=== PATIENT | male | born 1980 | race Caucasian/White ===

== ENCOUNTER 2017-04-11 02:44 | Inpatient (IN) | payer SELFPAY, OTHER ==
[2017-04-11] MEDS: LORAZEPAM 2 MG INJ IV ×2 (05:29→06:16)
[2017-04-11 05:32] LABS: ADD MAN DIFF? NO
[2017-04-11 05:46] LABS: BASOPHIL # 0.1 10^3/ul (0.0-0.1); BASOPHILS % 0.5 % (0.0-2.0); EOSINOPHILS % 0.2 % (0.0-7.0); HEMATOCRIT 51.5 % (42.0-52.0); HEMOGLOBIN 17.8 g/dl (14.0-18.0); LYMPHOCYTES # 1.1 10^3/ul (0.8-2.9); LYMPHOCYTES % 7.7 % (15.0-51.0); MEAN CORPUSCULAR HEMOGLOBIN 29.3 pg (29.0-33.0); MEAN CORPUSCULAR HGB CONC 34.6 g/dl (32.0-37.0); MEAN CORPUSCULAR VOLUME 84.8 fl (82.0-101.0); MEAN PLATELET VOLUME 9.7 fl (7.4-10.4); MONOCYTE # 1.3 10^3/ul (0.3-0.9); MONOCYTES % 8.9 % (0.0-11.0); NEUTROPHIL # 11.5 10^3/ul (1.6-7.5); NEUTROPHILS % 81.5 % (39.0-77.0); PLATELET COUNT 570 10^3/UL (140-415); RED BLOOD COUNT 6.07 10^6/ul (4.70-6.10); RED CELL DISTRIBUTION WIDTH 13.2 % (11.5-14.5)
[2017-04-11 05:46] LABS: WHITE BLOOD COUNT 14.1 10^3/ul (4.8-10.8)
[2017-04-11] MEDS: SOD CHLORIDE 0.9% 1,000 ML IV ×2 (06:16→18:47)
[2017-04-11 06:17] LABS: ANION GAP 19 (8-16); BLOOD UREA NITROGEN 22 mg/dl (7-20); CALCIUM 10.4 mg/dl (8.4-10.2); CARBON DIOXIDE 25 mmol/L (21-31); CHLORIDE 99 mmol/L (97-110); CREATININE 0.86 mg/dl (0.61-1.24); GLUCOSE 94 mg/dl (70-220); POTASSIUM 3.3 mmol/L (3.5-5.1); SODIUM 140 mmol/L (135-144)
[2017-04-11 06:28] LABS: TROPONIN-I 0.071 ng/ml (0.00-0.12)
[2017-04-11] MEDS: ASPIRIN 81 MG TAB PO (07:11)
[2017-04-11] MEDS ORDERED: ONDANSETRON 4 MG INJ IV (08:00)
[2017-04-11] MEDS ORDERED: LORAZEPAM 0.5 MG TAB PO (15:30)
[2017-04-11 16:17] LABS: ALANINE AMINOTRANSFERASE 61 IU/L (13-69); ALBUMIN 4.9 g/dl (3.3-4.9); ALKALINE PHOSPHATASE 89 IU/L (42-121); ASPARTATE AMINO TRANSFERASE 42 IU/L (15-46); BILIRUBIN,INDIRECT 0.4 mg/dl (0-1.1); BILIRUBIN,TOTAL 0.4 mg/dl (0.2-1.3); MAGNESIUM 2.2 mg/dl (1.7-2.5); PHOSPHORUS 2.6 mg/dl (2.5-4.9); TOTAL PROTEIN 8.5 g/dl (6.1-8.1)
[2017-04-11 16:46] LABS: THYROID STIMULATING HORMONE 0.761 MIU/L (0.465-4.680)
[2017-04-11 18:56] LABS: CREATINE KINASE 147 IU/L (23-200)
[2017-04-11 19:08] LABS: CK INDEX 2.7; TROPONIN-I 0.024 ng/ml (0.00-0.12)
[2017-04-11 19:09] LABS: CK-MB 3.91 ng/ml (0.0-2.4)
[2017-04-11 19:12] LABS: AMPHETAMINE/METHAMPHETAMINE POSITIVE (NEGATIVE); BARBITURATES Negative (NEGATIVE); BENZODIAZEPINES Negative (NEGATIVE); CANNABINOIDS Positive (NEGATIVE); COCAINE Negative (NEGATIVE); OPIATES Negative (NEGATIVE)
[2017-04-11] MEDS: ACETAMINOPHEN 325 MG TAB PO (19:43)
[2017-04-11] MEDS: FAMOTIDINE 20 MG TAB PO (20:19)
[2017-04-12 01:27] LABS: CREATINE KINASE 134 IU/L (23-200)
[2017-04-12 01:41] LABS: CK INDEX 2.2; TROPONIN-I 0.023 ng/ml (0.00-0.12)
[2017-04-12 01:45] LABS: CK-MB 3.01 ng/ml (0.0-2.4)
[2017-04-12] MEDS: SOD CHLORIDE 0.9% 1,000 ML IV ×2 (02:50→08:59)
[2017-04-12 07:22] LABS: ADD MAN DIFF? NO
[2017-04-12 07:30] LABS: WHITE BLOOD COUNT 5.8 10^3/ul (4.8-10.8)
[2017-04-12 07:30] LABS: BASOPHILS % 0.5 % (0.0-2.0); EOSINOPHILS # 0.2 10^3/ul (0.0-0.5); EOSINOPHILS % 3.8 % (0.0-7.0); HEMATOCRIT 42.6 % (42.0-52.0); HEMOGLOBIN 14.4 g/dl (14.0-18.0); LYMPHOCYTES # 1.4 10^3/ul (0.8-2.9); LYMPHOCYTES % 23.7 % (15.0-51.0); MEAN CORPUSCULAR HEMOGLOBIN 29.4 pg (29.0-33.0); MEAN CORPUSCULAR HGB CONC 33.8 g/dl (32.0-37.0); MEAN CORPUSCULAR VOLUME 87.1 fl (82.0-101.0); MEAN PLATELET VOLUME 9.7 fl (7.4-10.4); MONOCYTE # 0.6 10^3/ul (0.3-0.9); MONOCYTES % 10.2 % (0.0-11.0); NEUTROPHIL # 3.5 10^3/ul (1.6-7.5); NEUTROPHILS % 61.1 % (39.0-77.0); PLATELET COUNT 389 10^3/UL (140-415); RED BLOOD COUNT 4.89 10^6/ul (4.70-6.10); RED CELL DISTRIBUTION WIDTH 13.7 % (11.5-14.5)
[2017-04-12 07:49] LABS: ANION GAP 10 (8-16); BLOOD UREA NITROGEN 17 mg/dl (7-20); CALCIUM 8.4 mg/dl (8.4-10.2); CARBON DIOXIDE 26 mmol/L (21-31); CHLORIDE 111 mmol/L (97-110); CREATININE 0.69 mg/dl (0.61-1.24); GLUCOSE 100 mg/dl (70-220); POTASSIUM 4.1 mmol/L (3.5-5.1); SODIUM 143 mmol/L (135-144)
[2017-04-12] MEDS: FAMOTIDINE 20 MG TAB PO (08:57)
[2017-04-12] MEDS: ASPIRIN (EC) 81 MG TAB PO (08:57)
[2017-04-12] MEDS ORDERED: INFLUENZA VIRUS VACCINE 0.5 ML SYG IM* (21:00)
== END 2017-04-12 14:23 | disposition home or self-care (01) | DRG 310 ==
LOC: E/R 02:44 → MS4 07:36
DX: R00.0 Tachycardia, unspecified (principal); F15.10 Other stimulant abuse, uncomplicated; R07.9 Chest pain, unspecified; R00.2 Palpitations
CPT/HCPCS: 36415; 71045; 80048; 80076; 80307; 82550; 82553; 82962; 83735; 84100; 84443; 84484; 85025; 90686; 93005; 93306; 96374; 96376; 99285-25

== ENCOUNTER 2017-05-27 09:14 | Emergency (ER) | payer SELFPAY, MEDICAID ==
[2017-05-27] MEDS: HYDROCODONE/APAP (10/325) TAB PO (11:06)
[2017-05-27] MEDS: ONDANSETRON (ODT) 4 MG TAB ODT (11:06)
[2017-05-27 11:11] LABS: ADD MAN DIFF? NO
[2017-05-27 11:15] LABS: WHITE BLOOD COUNT 7.2 10^3/ul (4.8-10.8)
[2017-05-27 11:15] LABS: BASOPHIL # 0.1 10^3/ul (0.0-0.1); BASOPHILS % 0.8 % (0.0-2.0); EOSINOPHILS # 0.2 10^3/ul (0.0-0.5); HEMATOCRIT 44.4 % (42.0-52.0); HEMOGLOBIN 15.2 g/dl (14.0-18.0); LYMPHOCYTES # 2.6 10^3/ul (0.8-2.9); LYMPHOCYTES % 35.5 % (15.0-51.0); MEAN CORPUSCULAR HEMOGLOBIN 29.5 pg (29.0-33.0); MEAN CORPUSCULAR HGB CONC 34.2 g/dl (32.0-37.0); MEAN CORPUSCULAR VOLUME 86.2 fl (82.0-101.0); MONOCYTE # 0.5 10^3/ul (0.3-0.9); MONOCYTES % 7.5 % (0.0-11.0); NEUTROPHIL # 3.8 10^3/ul (1.6-7.5); NEUTROPHILS % 52.8 % (39.0-77.0); PLATELET COUNT 313 10^3/UL (140-415); RED BLOOD COUNT 5.15 10^6/ul (4.70-6.10); RED CELL DISTRIBUTION WIDTH 13.2 % (11.5-14.5)
[2017-05-27] MEDS: TAMSULOSIN (SR) 0.4 MG CAP PO (11:19)
[2017-05-27 11:31] LABS: ADD UMIC NO; UR ASCORBIC ACID NEGATIVE (NEGATIVE); UR BILIRUBIN (Dip) NEGATIVE (NEGATIVE); UR BLOOD (Dip) NEGATIVE (NEGATIVE); UR CLARITY CLEAR (CLEAR); UR COLOR COLORLESS (YELLOW); UR GLUCOSE (Dip) NEGATIVE (NEGATIVE); UR KETONES (Dip) NEGATIVE (NEGATIVE); UR LEUKOCYTE ESTERASE (Dip) NEGATIVE Leu/ul (NEGATIVE); UR NITRITE (Dip) NEGATIVE (NEGATIVE); UR SPECIFIC GRAVITY (Dip) 1.003 (1.003-1.030); UR TOTAL PROTEIN (Dip) NEGATIVE (NEGATIVE); UR UROBILINOGEN (Dip) NEGATIVE (NEGATIVE)
[2017-05-27 11:32] LABS: ALANINE AMINOTRANSFERASE 43 IU/L (13-69); ALBUMIN 4.4 g/dl (3.3-4.9); ALBUMIN/GLOBULIN RATIO 1.57; ALKALINE PHOSPHATASE 54 IU/L (42-121); ANION GAP 14 (8-16); ASPARTATE AMINO TRANSFERASE 24 IU/L (15-46); BILIRUBIN,INDIRECT 0.5 mg/dl (0-1.1); BILIRUBIN,TOTAL 0.5 mg/dl (0.2-1.3); BLOOD UREA NITROGEN 11 mg/dl (7-20); CALCIUM 8.9 mg/dl (8.4-10.2); CARBON DIOXIDE 29 mmol/L (21-31); CHLORIDE 106 mmol/L (97-110); GLUCOSE 89 mg/dl (70-220); LIPASE 33 U/L (23-300); POTASSIUM 3.9 mmol/L (3.5-5.1); SODIUM 145 mmol/L (135-144); TOTAL PROTEIN 7.2 g/dl (6.1-8.1)
[2017-05-27] MEDS: ONDANSETRON 4 MG INJ IV (11:58)
[2017-05-27] MEDS: morphine 10 MG INJ IV (11:59)
== END 2017-05-27 13:34 | disposition home or self-care (01) ==
LOC: FTE 09:14
DX: R10.9 Unspecified abdominal pain (principal)
CPT/HCPCS: 36415; 74176; 80053; 81003; 83690; 85025; 96374; 96375; 99285-25